=== PATIENT | male | born 1990 | race Caucasian/White ===

== ENCOUNTER 2025-01-16 16:25 | Emergency (ER) | payer SELFPAY ==
[2025-01-16 16:52] VITALS: BP 113/77; PULSE 99; RESP 16; TEMP 99.6; BMI 39.9
[2025-01-16] MEDS ORDERED: IBUPROFEN 600 MG TABLET (FP) PO ONE (17:04)
[2025-01-16] MEDS: IBUPROFEN 600 MG TABLET (FP) PO ONE (17:05)
== END 2025-01-16 18:03 | disposition home or self-care (01) ==
LOC: JERFT 16:25
PROC: 0HQFXZZ Repair Right Hand Skin, External Approach (ICD-10-PCS; principal; 2025-01-16)
DX: S61.210A Laceration without foreign body of right index finger without damage to nail, initial encounter (principal); X50.1XXA Overexertion from prolonged static or awkward postures, initial encounter; Y93.67 Activity, basketball
CPT/HCPCS: 73130-TC-RT-FY; 99283-25

== ENCOUNTER 2025-01-23 13:07 | Emergency (ER) | payer SELFPAY ==
[2025-01-23 13:14] VITALS: BP 140/86; PULSE 80; RESP 18; TEMP 98.4; BMI 38.7
== END 2025-01-23 13:35 | disposition home or self-care (01) ==
LOC: JERFT 13:07
DX: Z48.02 Encounter for removal of sutures (principal)
CPT/HCPCS: 99281-25